=== PATIENT | male | born 1960 | race Caucasian/White ===

== ENCOUNTER 2019-01-20 07:05 | Day surgery (SDC) | payer OTHER, MEDICAID ==
[2019-01-14 14:14] LABS: Basophils # (auto) 0.1 uL; Eosinophils # (auto) 0.2 uL; Eosinophils % (auto) 2.2 % (0.0-7.0); Hematocrit 46.5 % (41.0-53.0); Hemoglobin 15.6 g/dL (13.5-17.5); Lymphocytes # (auto) 3.5 uL; Lymphocytes % (auto) 49.1 % (10.0-50.0); Mean Corpuscular Hemoglobin 30.1 pg (28.0-32.0); Mean Corpuscular Hgb Conc. 33.5 g/dL (32.0-36.0); Mean Corpuscular Volume 89.9 fL (80.0-100.0); Monocytes # (auto) 0.5 uL; Monocytes % (auto) 7.2 % (0.0-12.0); Neutrophils # (auto) 2.9 uL; Neutrophils % (auto) 40.5 % (37.0-80.0); Nucleated Red Blood Cells % 0.1 %; Platelet Count (auto) 242 10^3/uL (140-450); Red Blood Cells 5.17 10^6/uL (4.5-5.90); Red Cell Distribution Width 14.1 % (11.8-14.3); White Blood Cell 7.1 10^3/uL (4.4-10.8)
[2019-01-14 14:33] LABS: INR 0.94 (0.9-1.15); Partial Thromboplastin Time 29.7 sec (23.64-32.05)
[2019-01-14 16:27] LABS: Albumin 3.8 g/dL (3.4-5.0); BUN/Creatinine Ratio 7.3; Calcium 8.7 mg/dL (8.5-10.1); Potassium 4.1 mmol/L (3.5-5.1); Total Protein 7.2 g/dL (6.4-8.2)
[2019-01-14 16:29] LABS: Bilirubin, Total 0.5 mg/dL (0.2-1.0)
[~2019-01-20] VITALS: Ht 165.1 cm; Wt 98.9 kg
[~2019-01-20 07:05] MED LIST: CHOL20007 PO; CYAN100L PO; ECHI80CA PO; ESCI20TA51 PO; GABA300C10 PO; IBUP800T24 PO; OMEP20TA PO; POTA10TA51 PO; VITA100T3 PO; [UNRECOGNIZED DRUG - CODE] XX
[2019-01-20] MEDS ORDERED: ceFAZolin 1GM/50ML 50 ML IV ONE (07:26)
[2019-01-20] MEDS ORDERED: ROPIVACAINE 0.5% (5MG/ML) 20ML AMPULE IJ ONE (08:07)
[2019-01-20] MEDS ORDERED: methylPREDNISolone ACETATE 80 MG/ML VL ONE (08:15)
[2019-01-20] MEDS ORDERED: fentaNYL CITRATE 100 MCG/2 ML VL ONE (08:24)
[2019-01-20] MEDS ORDERED: MIDAZOLAM HCL 1MG/1ML-2 ML VIAL ONE (08:24)
[2019-01-20] MEDS ORDERED: PROPOFOL 10 MG/ML 20 ML IV ONE (08:28)
[2019-01-20] MEDS ORDERED: ONDANSETRON HCL 4 MG/2 ML VIAL IV PRN (08:45)
[2019-01-20] MEDS ORDERED: fentaNYL CITRATE 100 MCG/2 ML VL IV PRN (08:45)
[2019-01-20] MEDS ORDERED: ePHEDrine SULFATE 50 MG/ML AMP IV PRN (08:45)
[2019-01-20] MEDS ORDERED: hydrALAZINE HCL 20 MG/ML VL IV PRN (08:45)
[2019-01-20 09:17] VITALS: BP 119/89
== END 2019-01-20 09:17 | disposition home or self-care (01) ==
LOC: SUR 07:05
PROVIDERS: ATTEND Podiatrist Foot & Ankle Surgery
DX: G57.52 Tarsal tunnel syndrome, left lower limb (principal); J45.909 Unspecified asthma, uncomplicated; F17.210 Nicotine dependence, cigarettes, uncomplicated; E66.9 Obesity, unspecified; Z68.36 Body mass index [BMI] 36.0-36.9, adult; Z79.899 Other long term (current) drug therapy
CPT/HCPCS: 27626; 36415; 80053; 85025; 85610; 85730; 88304; 93005; J0690; J1040; J2250; J2704; J2795; J3010